=== PATIENT | male | born 1980 | race Caucasian/White ===

== ENCOUNTER 2017-10-17 18:40 | Emergency (ER) | payer OTHER ==
[2017-10-17 19:09] VITALS: BP 142/73
--- NOTE | 2017-10-17 19:13 | UC ---
Eye Complaint HPI - HPI Summary HPI Summary: sensation left eye x 2 days working on [employer] irritated and tearing no pain/photophobia has "divit left eye from old injury" - History of Current Complaint Chief Complaint: UCEye Stated Complaint: LEFT EYE COMPLAINT Time Seen by Provider: 10/17/17 19:13 Hx Obtained From: Patient Onset/Duration: Gradual Onset, Lasting Days Timing: Constant Severity Initially: Mild Severity Currently: Mild Pain Intensity: 2 Pain Scale Used: 0-10 Numeric Character: Foreign Body Sensation - feels like it's moving - Allergies/Home Medications Allergies/Adverse Reactions: Allergies Allergy/AdvReac Type Severity Reaction Status Date / Time baclofen Allergy Chest pain Verified 10/17/17 19:15 bupropion Allergy Headache Verified 10/17/17 19:13 gabapentin Allergy spasmatic Verified 10/17/17 19:15 movement isoniazid Allergy delirium Verified 10/17/17 19:15 methocarbamol Allergy Dizziness Verified 10/17/17 19:13 nicotine gum Allergy hiccups Uncoded 10/17/17 19:13 Home Medications: Home Medications Amlodipine Besylate [Norvasc 10 mg tab] 10 mg PO QAM 10/17/17 [History Confirmed 10/17/17] Aspirin [Aspir-Low] 81 mg PO QAM 10/17/17 [History Confirmed 10/17/17] Atenolol TAB* [Tenormin TAB* 25 MG] 25 mg PO DAILY 10/17/17 [History Confirmed 10/17/17] Atorvastatin* [Lipitor*] 80 mg PO QPM 10/17/17 [History Confirmed 10/17/17] Cholecalciferol TAB* [Vitamin D TAB*] 1,000 unit PO DAILY 10/17/17 [History Confirmed 10/17/17] Cyanocobalamin TAB* [Vitamin B12 TAB*] 1,000 mcg PO DAILY 10/17/17 [History Confirmed 10/17/17] Diclofenac 1% GEL (NF) [Voltaren 1% GEL (NF)] 1 applic TOPICAL BID 10/17/17 [ History Confirmed 10/17/17] Omeprazole CAP* [Prilosec CAP* 20 MG] 20 mg PO BEDTIME 10/17/17 [History Confirmed 10/17/17] Sulindac 150 mg PO QAM 10/17/17 [History Confirmed 10/17/17] PMH/Surg Hx/FS Hx/Imm Hx Previously Healthy: Yes Endocrine History: Dyslipidemia Cardiovascular History: Hypertension - Surgical History Surgical History: Yes Surgery Procedure, Year, and Place: appy, right foot x 2 - Family History Known Family History: Positive: Hypertension - Social History Alcohol Use: Rare Substance Use Type: Excessive Caffeine Smoking Status (MU): Heavy Every Day Tobacco Smoker - Immunization History Most Recent Tetanus Shot: UTD Review of Systems Constitutional: Negative Skin: Negative Eyes: Other - tearing and fb sensation ENT: Negative Respiratory: Negative Cardiovascular: Negative Gastrointestinal: Negative Genitourinary: Negative Motor: Negative Neurovascular: Negative Musculoskeletal: Negative Neurological: Negative Psychological: Negative Is Patient Immunocompromised?: No All Other Systems Reviewed And Are Negative: Yes Physical Exam Triage Information Reviewed: Yes Appearance: Well-Appearing, No Pain Distress, Well-Nourished Vital Signs: Initial Vital Signs Temp 98.6 F 10/17/17 18:56 Pulse 77 10/17/17 18:56 Resp 24 10/17/17 18:56 BP 142/73 10/17/17 18:56 Pulse Ox 100 10/17/17 18:56 Vital Signs Reviewed: Yes Eyes: Positive: Conjunctiva Clear, Other: - no FB n oted/neg flouresceing staining ENT: Positive: Hearing grossly normal. Negative: Nasal congestion, Nasal drainage, Tonsillar swelling, Tonsillar exudate, Muffled voice, Hoarse voice Neck: Positive: Supple, Nontender Respiratory: Positive: Lungs clear, Normal breath sounds, No respiratory distress, No accessory muscle use Cardiovascular: Positive: RRR Musculoskeletal: Positive: ROM Intact, No Edema Neurological: Positive: Alert Psychological Exam: Normal Re-Evaluation - Re-Evaluation First Eval Re-Evaluation Time: 20:19 Change: Improved - feels better after flush Eye Complaint Course/Dx - Differential Dx/Diagnosis Provider Diagnoses: foering body sensation left eye Discharge - Sign-Out/Discharge Documenting (check all that apply): Discharge/Admit/Transfer - Discharge Plan Condition: Stable Disposition: HOME Referrals: Jose Manuel Beauchamp MD [Primary Care Provider] - Additional Instructions: I saw no foreign body or scratch I suggest you see your eye doctor THURSDAY if irritation persists TO ER IF SYMPTOMS WORSEN try ZADITOR eye drops (over the counter) - Billing Disposition and Condition Condition: STABLE Disposition: Home
[2017-10-17] MEDS ORDERED: Fluorescein Sod TOPICAL 0.6* 0.6 MG TEST OPHTHALMIC ONE (19:25)
[2017-10-17] MEDS ORDERED: NS 0.9% 1000 ML* 1,000 ML BOLUS ONE (19:58)
== END 2017-10-17 20:25 | disposition home or self-care (01) ==
LOC: UCCORT 18:40
DX: H57.8 Other specified disorders of eye and adnexa (principal); Z88.8 Allergy status to other drugs, medicaments and biological substances; I10 Essential (primary) hypertension; E78.5 Hyperlipidemia, unspecified; F17.290 Nicotine dependence, other tobacco product, uncomplicated; Z79.899 Other long term (current) drug therapy
CPT/HCPCS: 99202; G0463